=== PATIENT | female | born 1955 | race Caucasian/White ===

== ENCOUNTER → 2021-05-02 | Outpatient (REF) | payer MEDICARE ==
[2021-05-02 14:53] LABS: SOURCE, BODY FLUID GLUCOSE LFT KNEE
[2021-05-02 15:10] LABS: SOURCE, BODY FLUID LFT KNEE; SYNOVIAL FLUID COLOR YELLOW (COLORLESS)
[2021-05-02 15:17] LABS: CRYSTALS, BODY FLUID NONE SEEN (NONE SEEN); SOURCE, BODY FLUID CRYSTALS LFT KNEE
[2021-05-03 11:36] LABS: MUCIN CLOT TEST 4+ (4+)
[2021-05-03 11:42] LABS: BODY FLUID RHEUMATOID SCREEN NEGATIVE (NEGATIVE)
== END ==
LOC: M LAB REF 14:13
PROVIDERS: ATTEND Physician Assistant Surgical
DX: M17.12 Unilateral primary osteoarthritis, left knee (principal); M25.462 Effusion, left knee